=== PATIENT | female | born 1975 | race Caucasian/White ===

== ENCOUNTER → 2022-06-11 | Outpatient (CLI) | payer OTHER, SELFPAY ==
--- NOTE | 2022-06-11 14:30 | EMB_PTH ---
PATIENT: HANNY LOFTON LOC: [facility] U#:[id number] AGE/SX: 46/F ROOM: RE06/11/[address]: Dr. Homero Figueroa MD : 1975 BED: DIS: 06/11/2022 SPEC #: [id number] RECD: 06/11/22 16:01 STATUS: SHELDON JONO #: [id number] EL: 06/11/22 14:[address]: Homero Figueroa DEPT: SURGICAL PATHOLOGY RECD BY: Gloria Gautam Tissues: Endometrium, NOS Procedures: Surgery Specimen Level IV HEADER OPERATION: Endometrial biopsy PRE-OP DIAGNOSIS: Abnormal uterine bleeding TISSUE SUBMITTED: Endometrial biopsy MICROSCOPIC DIAGNOSIS Endometrium, biopsy: Secretory endometrium with glandular and stromal breakdown. Fibrinoid material. See comment. AM:naima 06/13/2022 COMMENT Re-biopsy is recommended if clinically indicated. Case has been reviewed in consultation with Dr. Ogden who concurs with the above diagnosis. IDC:SJ MICROSCOPIC DESCRIPTION Slides are reviewed. GROSS DESCRIPTION Received in fixative is one container labeled with the patient's name and designated endometrial biopsy. The specimen consists of a scant amount of soft tissue. The specimen is totally submitted for cell block preparation. / JULIETTE:naima 06/12/2022 TC:5 CPT: 54667
== END | disposition home or self-care (01) ==
LOC: LABSPEC 15:46
PROVIDERS: Visit Provider Obstetrics & Gynecology
DX: N93.9 Abnormal uterine and vaginal bleeding, unspecified (principal)
CPT/HCPCS: 88305

== ENCOUNTER 2022-08-12 08:51 | Day surgery (SDC) | payer OTHER, SELFPAY ==
[2022-08-12 09:37] VITALS: BP 133/76; PULSE 79; RESP 16; TEMP 36.3; O2SAT 98; BMI 32.3
[2022-08-12] MEDS: Lactated Ringers 1,000 ML 120 ML IV (09:40)
--- NOTE | 2022-08-12 10:04 | PCM.HP.BLA ---
History and Physical Date of Admission: 08/12/22 Chief complaint: Abnormal uterine bleeding History present illness: 47-year-old G4, P3 arrives with abnormal uterine bleeding for hysteroscopy, dilation and curettage, endometrial ablation via Geovanna. No medical changes since last seen. All questions answered and consent signed. Obstetric history: Patient with 3 vaginal deliveries and 1 SAB Past medical history: Type 2 diabetes, hypertension, hyperlipidemia Medications: Trulicity once weekly, metformin 500 mg daily, Bystolic 20 mg twice daily Past surgical history:Tubal ligation Allergies: No known drug allergies Social history: Denies smoking, alcohol use, drug use Family history: Denies history of DVT or PE Review of systems: Besides above pertinent positives a full review of systems was performed and found to be negative Physical exam: Vital signs: Blood pressure 133/76 pulse 79 respiratory rate 16 temperature 97.3 ?F SPO2 90% on room air General: Normal-appearing no acute distress HEENT: Normocephalic/atraumatic no cervical of adenopathy Cardiac/respiratory: No successor muscles, nonlabored breathing Abdomen: Soft, nontender, nondistended Extremities: No peripheral edema normal peripheral pulses Psych: Normal affect normal demeanor nonpressured speech Assessment plan: 47-year-old for hysteroscopy, dilation curettage, endometrial ablation via Geovanna. All questions answered and consent signed
--- NOTE | 2022-08-12 10:30 | EMB_PTH ---
PATIENT: HANNY LOFTON LOC: [facility] U#:[id number] AGE/SX: 47/F ROOM: RE08/12/[address]: Dr. Homero iFgueroa MD : 1975 BED: DIS: 08/12/2022 SPEC #: [id number] RECD: 08/12/22 14:02 STATUS: SHELDON JONO #: [id number] EL: 08/12/22 10:[address]: Homero Figueroa DEPT: SURGICAL PATHOLOGY RECD BY: Ashley Vieira ENTERED: 08/13/22 07:48 SP TYPE: ENDOM BX/C RADHA DR: Dr. Kain Gunter MD Tissues: Endometrium, NOS Procedures: Surgery Specimen Level IV HEADER OPERATION: Hysteroscopy, dilation and curettage with Geovanna ablation PRE-OP DIAGNOSIS: Abnormal uterine bleeding TISSUE SUBMITTED: Endometrial curettings MICROSCOPIC DIAGNOSIS Endometrial curettings: Mildly disordered proliferative endometrium with glandular and stromal breakdown and morular metaplasia. SJ:naima 08/14/2022 MICROSCOPIC DESCRIPTION Slides are reviewed. GROSS DESCRIPTION Received in fixative is one container labeled with the patient's name and designated endometrial curettings. The specimen consists of multiple fragments of hemorrhagic soft tissue that in aggregate measure 2.5 x 2 x 0.2 cm. The specimen is totally submitted in one cassette. / JULIETTE:naima 08/13/2022 TC:5 CPT: 49243
--- NOTE | 2022-08-12 11:01 | DCINST_ITS ---
Discharge Instructions Diet Discharge Diet: No restrictions Activity Discharge Activity: Return to Normal Activity, May Drive and May Shower May resume sexual activity in: 4-6 weeks Weight Bearing Status: Weight bearing as tolerated Dressing / Incision Call your doctor if your incision/area has: Continuous Slow Oozing and Foul Smelling Discharge Call your doctor if you observe: Fever of 101 or Higher, Shortness of breath and Chest pain Follow Up Care Please Follow Up With: Homero Figueroa MD When: 2 weeks postoperatively Test Results: Test results from this visit will be discussed in further detail at your follow- up appointment, if applicable. Discharge Plan Admission Attending Provider: Homero Figueroa Primary Care Provider: Kain Gunter Discharge Orders/Prescriptions Prescriptions: No Action metformin 500 mg tablet 1,000 mg PO BID Label Comments: TAKE 2 TABLETS BY MOUTH TWICE A DAY polysaccharide iron complex [iFerex 150] 150 mg iron Capsule 150 mg PO BID rosuvastatin 10 mg tablet 20 mg PO DAILY Label Comments: TAKE 1 TABLET BY MOUTH EVERY DAY nebivolol 20 mg tablet 40 mg PO DAILY Label Comments: TAKE 2 TABLETS BY MOUTH EVERY DAY Trulicity 0.75 mg/0.5 mL pen injector 0.75 mg SUBCUT NGUYEN Label Comments: USE 1 INJECTION WEEKLY Referrals / Follow Up: Kain Gunter MD [Primary Care Provider] - Disposition Disposition (needs filled in before D/C Order can be placed): Home, Self Care
--- NOTE | 2022-08-12 11:02 | OP.PCM_ITS ---
Report of Operation Date of Procedure: 08/12/22 Pre-Operative Diagnosis: Abnormal uterine bleeding Post-Operative Diagnosis: Abnormal uterine bleeding Surgery/Procedure Performed:: Hysteroscopy, dilation curettage, endometrial ablation via Geovanna Description of Surgical Findings:: Surgeon: Homero Figueroa MD Anesthesia: MAC EBL: 10 cc Urine output: Not measured IV fluids: 500 cc Complications: None Specimen: Endometrial curettings Findings: Hysteroscopy revealed no endometrial pathology. Uterine cavity found to be 6 cm in length. Endometrial ablation for 120 seconds. Post procedure hysteroscopy performed and no new pathology noted. Consent: Patient with abnormal uterine bleeding elects for hysteroscopy, dilation curettage, endometrial ablation via Geovanna. Patient understands risk of the procedure include but are not limited to visceral or vascular injury, prolonged hospitalization, blood loss need for transfusion, reoperation. Patient state understanding wish to proceed. All questions were answered and consent was sign ed. Procedure: Patient was brought back to the OR where MAC anesthesia was found to be adequate. Patient was prepared and draped in a dorsolithotomy position with yellowfin stirrups. A weighted speculum is placed in the posterior aspect of the vagina and cervical dilators were used to dilate the cervix. Hysteroscope was inserted and above findings were noted. Uterine cavity length found to be 6 cm. Sharp endometrial curettage was performed under direct visualization in all 4 quadrants. Endometrial curetting sent to pathology. Geovanna endometrial ablation device inserted under direct visualization. Cavity safety test passed x2. Endometrial ablation performed for 120 seconds. Geovanna device removed under direct visualization. Post procedure hysteroscope performed and above findings were noted. Good hemostasis was noted. All counts correct x2. Patient tolerated procedure well and was brought to recovery in a stable condition.
[2022-08-12 11:10] VITALS: BP 114/76; BP 133/76; PULSE 85; RESP 16; TEMP 36.4; O2SAT 97
[2022-08-12 11:15] VITALS: BP 122/78; BP 133/76; PULSE 80; RESP 16; O2SAT 97
[2022-08-12 11:20] VITALS: BP 123/72; BP 133/76; PULSE 75; RESP 16; O2SAT 98
[2022-08-12] MEDS: Ketorolac 30 MG/ML Syringe IV (11:23)
[2022-08-12 11:25] VITALS: BP 127/79; BP 133/76; PULSE 69; RESP 16; TEMP 36.1; O2SAT 97
[2022-08-12 11:54] VITALS: BP 133/76; BP 140/81; PULSE 69; RESP 16; TEMP 37.2; O2SAT 99
[2022-08-12 12:15] LABS: Bedside Glucose 140 mg/dL (74-106)
== END 2022-08-12 12:05 | disposition home or self-care (01) ==
LOC: SDC 08:56 → AC 08:59
PROVIDERS: PCP Family Medicine; Referring Provider Obstetrics & Gynecology; Visit Provider Obstetrics & Gynecology
PROC: 0U5B8ZZ Destruction of Endometrium, Via Natural or Artificial Opening Endoscopic (ICD-10-PCS; CPT 58558; principal; 2022-08-12 10:15)
DX: N93.9 Abnormal uterine and vaginal bleeding, unspecified (principal); E11.9 Type 2 diabetes mellitus without complications; E78.00 Pure hypercholesterolemia, unspecified; I10 Essential (primary) hypertension; Z79.84 Long term (current) use of oral hypoglycemic drugs; D64.9 Anemia, unspecified; Z79.899 Other long term (current) drug therapy; E61.1 Iron deficiency
CPT/HCPCS: 58563; 00952; 82962; 88305; J7120; J2405

== ENCOUNTER → 2022-11-27 | Outpatient (CLI) | payer OTHER, SELFPAY ==
[2022-12-06 17:26] LABS: HPV APTIMA, High Risk Negative (Negative)
== END | disposition home or self-care (01) ==
LOC: LABSPEC 13:47
PROVIDERS: PCP Family Medicine; Visit Provider Obstetrics & Gynecology
DX: Z12.4 Encounter for screening for malignant neoplasm of cervix (principal)
CPT/HCPCS: 87624; 88175; G0145